=== PATIENT | female | born 1995 | race African-American/Black ===

== ENCOUNTER 2017-04-25 20:29 | Emergency (ER) | payer OTHER ==
[~2017-04-25] VITALS: Ht 165.1 cm; Wt 118.2 kg
[~2017-04-25 20:29] MED LIST: AUGMENTIN875 MG PO; NAPROSYN500 MG PO; NORCO 5/3251 TABLET PO
[2017-04-25 21:14] LABS: HEMATOCRIT 35.8 % (36.0-46.0); MCH 29.7 PG (29.0-34.0); MCHC 33.2 G/DL (30.0-36.0); MCV 89.3 FL (83-99); MEAN PLAT.VOLUME 9.9 uM^3 (9.5-12.4); PLATELET COUNT 279 K/uL (156-360); RBC DIS.WIDTH-CV 13.2 % (11.8-14.6); RBC DIS.WIDTH-SD 43.3 % (39-53); RED BLOOD COUNT 4.01 M/uL (3.80-5.20); WHITE BLOOD COUNT 10.2 K/uL (4.1-10.2)
[2017-04-25 21:27] LABS: CHLORIDE 104 mEq/L (99-109); POTASSIUM 3.8 mEq/L (3.7-5.4); SODIUM 138 mEq/L (136-147)
[2017-04-25 21:29] LABS: GLUCOSE 76 mg/dL (70-99)
[2017-04-25 21:30] LABS: ANION GAP 9 MEQ/L (2-14)
[2017-04-25 21:31] LABS: TOTAL BILIRUBIN 0.3 mg/dL (0.0-1.0)
[2017-04-25 21:32] LABS: ALKALINE PHOSPHATASE 73 IU/L (3-129); GFR ESTIMATE (CALCULATED) > 59 mL/min/
[2017-04-25 21:34] LABS: UREA NITROGEN (BUN) 15 mg/dL (9-23)
[2017-04-25 21:36] LABS: LIPASE 95 U/L (1.0-51.0)
[2017-04-25 21:44] LABS: QUANTITATIVE HCG < 4.0 MIU/ML
[2017-04-25 22:19] LABS: ADD MIUA? YES; BILIRUBIN NEGATIVE; BLOOD NEGATIVE; COLOR YELLOW ((YELLOW)); GLUCOSE (STRIP) NEGATIVE; KETONES NEGATIVE; LEUKOCYTES TRACE; NITRITE NEGATIVE; PROTEIN (STRIP) 30; SPECIFIC GRAVITY 1.033 (1.000-1.030); UROBILINOGEN 0.2 MG/DL (0.2-1.0)
[2017-04-25 22:21] LABS: BACTERIA RARE /HPF; EPITHELIAL CELLS 1+ /HPF; MUCUS TRACE /LPF; RED BLOOD CELLS 0-5 /HPF (0-5); UCUL ADDED? NO; WHITE BLOOD CELLS 0-5 /HPF (0-5)
[2017-04-26] MEDS ORDERED: ZOFRAN ODT4 MG PO (00:46)
[2017-04-26 01:30] VITALS: BP 135/82
== END 2017-04-26 01:33 | disposition home or self-care (01) ==
LOC: EME 20:29
PROVIDERS: Physician Assistant
DX: R10.12 Left upper quadrant pain (principal); R10.13 Epigastric pain; R11.0 Nausea
CPT/HCPCS: 74177; 80053; 81003; 83690; 84702; 85027; 99281; 99284; J7030

== ENCOUNTER 2017-08-05 23:00 | Emergency (ER) | payer SELFPAY ==
[~2017-08-05] VITALS: Ht 167.6 cm; Wt 115.0 kg
[~2017-08-05 23:00] MED LIST changes: +ZOFRAN ODT4 MG PO
[2017-08-05] MEDS ORDERED: MEDROL DOSEPAK4 MG PO (23:50)
[2017-08-05 23:59] VITALS: BP 120/95
== END 2017-08-06 | disposition home or self-care (01) ==
LOC: EXP 23:00 → EME 23:00 → EXP 08-06
DX: J02.0 Streptococcal pharyngitis (principal); F17.200 Nicotine dependence, unspecified, uncomplicated
CPT/HCPCS: 99281; 99284; J1100